=== PATIENT | female | born 1980 | race Caucasian/White ===

== ENCOUNTER 2017-01-04 09:07 | Emergency (ER) | payer OTHER ==
[2017-01-04 09:11] VITALS: BMI 24.7
--- NOTE | 2017-01-04 09:33 | PDOC ---
History of Present Illness - General History Source: Patient Exam Limitations: No Limitations - History of Present Illness Initial Comments: 01/04/17 10:35 The patient is a 36 year old female (), with no significant past medical history who presents to the emergency department with hematuria since last night. Patient reports sudden onset of hematuria associated with dysuria and low back pain. Patient reports back pain is throbbing, 5/10 in severity with no radiation. Patient has never experienced these symptoms before and presents to the ED for further evaluation. Patient denies any complications during her previous pregnancies. Patient denies taking any medications however has been taking vitamins. Patient is scheduled for first US on Jan 23, 2017 at [facility]. Patient denies chest pain, headache or dizziness. Patient denies fever, chills, nausea, vomit, diarrhea or constipation. Patient denies dysuria, frequency, urgency or hematuria. Patient denies sick contacts or recent travel. Allergies: NKA Past surgical history:L bunionectomy Social history: None PCP: PROFESSOR OF RELIGIOUS STUDIES: Traci Duran <Apryl Ferrer - Last Filed: 01/04/17 12:20> <Polly Dominguez - Last Filed: 01/04/17 12:41> - General Chief Complaint: Vaginal Bleeding Stated Complaint: BLEEDING (8 WKS ) Time Seen by Provider: 01/04/17 09:33 Past History <Apryl Ferrer - Last Filed: 01/04/17 12:20> - Past Medical History COPD: No Other medical history: NONE - Suicide/Smoking/Psychosocial Hx Smoking History: Never smoked Hx Alcohol Use: No Drug/Substance Use Hx: No <Polly Dominguez - Last Filed: 01/04/17 12:41> - Past Medical History Allergies/Adverse Reactions: Allergies Allergy/AdvReac Type Severity Reaction Status Date / Time No Known Allergies Allergy Verified 01/04/17 09:11 Home Medications: Ambulatory Orders NK [No Known Home Medication] 01/04/17 Review of Systems - Review of Systems Able to Perform ROS?: Yes Comments:: 01/04/17 10:35 GENERAL/CONSTITUTIONAL: No fever or chills. No weakness. HEAD, EYES, EARS, NOSE AND THROAT: No change in vision. No ear pain or discharge. No sore throat. GASTROINTESTINAL: No nausea, vomiting, diarrhea or constipation. GENITOURINARY: + dysuria, hematuria, R Flank pain. No frequency, or change in urination. CARDIOVASCULAR: No chest pain or shortness of breath. RESPIRATORY: No cough, wheezing, or hemoptysis. MUSCULOSKELETAL: No joint or muscle swelling or pain. No neck or back pain. SKIN: No rash NEUROLOGIC: No headache, vertigo, loss of consciousness, or change in strength/ sensation. ENDOCRINE: No increased thirst. No abnormal weight change. HEMATOLOGIC/LYMPHATIC: No anemia, easy bleeding, or history of blood clots. ALLERGIC/IMMUNOLOGIC: No hives or skin allergy. <Apryl Ferrer - Last Filed: 01/04/17 12:20> *Physical Exam - Vital Signs Last Vital Signs Temp Pulse Resp BP Pulse Ox 98.1 F 75 17 121/67 98 01/04/17 09:08 01/04/17 09:53 01/04/17 09:53 01/04/17 09:53 01/04/17 09:53 - Physical Exam Comments: 01/04/17 10:35 GENERAL: Awake, alert, and fully oriented, in no acute distress HEAD: No signs of trauma EYES: PERRLA, EOMI, sclera anicteric, conjunctiva clear ENT: Auricles normal inspection, hearing grossly normal, nares patent, oropharynx clear without exudates. Moist mucosa NECK: Normal ROM, supple, no lymphadenopathy, JVD, or masses LUNGS: Breath sounds equal, clear to auscultation bilaterally. No wheezes, and no crackles HEART: Regular rate and rhythm, normal S1 and S2, no murmurs, rubs or gallops ABDOMEN: +Suprapubic tenderness to palpation. Soft, normoactive bowel sounds. No guarding, no rebound. No masses EXTREMITIES: Normal range of motion, no edema. No clubbing or cyanosis. No cords , erythema, or tenderness NEUROLOGICAL: Normal speech, cranial nerves intact, negative pronator drift, 5/ 5 strength in all 4 extremities, normal sensation to light touch in all 4 extremities, normal cerebellar exam, normal gait, normal reflexes and tone SKIN: Warm, Dry, normal turgor, no rashes or lesions noted. METALLURGIST HELPER: Pinkish/brown discharge on glove.Cervical os is closed. No midline or adnexal ttp <Apryl Ferrer - Last Filed: 01/04/17 12:20> - Vital Signs Last Vital Signs Temp Pulse Resp BP Pulse Ox 98.1 F 82 20 139/82 100 01/04/17 09:08 01/04/17 09:08 01/04/17 09:08 01/04/17 09:08 01/04/17 09:08 <Polly Dominguez - Last Filed: 01/04/17 12:41> ED Treatment Course - LABORATORY CBC & Chemistry Diagram: 01/04/17 09:30 01/04/17 09:30 - ADDITIONAL ORDERS Additional order review: 01/04/17 09:30 RBC 4.47 MCV 87.2 MCHC 34.5 RDW 15.0 MPV 7.9 Neutrophils % 50.6 Lymphocytes % 36.2 Monocytes % 6.7 Eosinophils % 5.1 H Basophils % 1.4 <Apryl Ferrer - Last Filed: 01/04/17 12:20> - LABORATORY CBC & Chemistry Diagram: 01/04/17 09:30 01/04/17 09:30 - RADIOLOGY Radiology Studies Ordered: Category Date Time Status TRANSVAGINAL US PREG [US] Stat Ultrasound 01/04/17 09:20 Ordered <Polly Dominguez - Last Filed: 01/04/17 12:41> Medical Decision Making - Medical Decision Making 01/04/17 12:19 Transvaginal US IMPRESSION: Early intrauterine . Estimated gestational age of 6 weeks 2 days based on the mean sac diameter. A tiny pole is identified measuring 2 mm. heart activity could not be detected /documented at this time. Correlation with serial quantitative serum beta hCG and close follow-up pelvis ultrasound is recommended Reported By: Yoselin Hensley MD 01/04/17 1214 01/04/17 12:20 Traci Duran paged via phone answering service. Awaiting call back. <Apryl Ferrer - Last Filed: 01/04/17 12:20> - Medical Decision Making 01/04/17 09:45 36-year-old female presents with bleeding upon urination since yesterday. Vitals unremarkable. Exam with closed os and minimal tenderness to palpation in the suprapubic area. Differential includes but is not limited to UTI versus threatened versus missed . Plan: -labs -type & screen -TVUS -UA/Ucx -reassess 11/29/17 12:28 Labs within normal limits. Type and screen O+. UA with no signs of infection. Transvaginal ultrasound consistent with 6 week and 2 day . No heart rate is visualized on the ultrasound. Beta is only in the 9000 range consistent with 5-6 wk . LMP 9 and thus large disparity btwn dates and US/HCG quant. Case discussed with Gina Zhang (Dr. Rayne Hidalgo's nurse) - possible spontaneous . We were able to move up her appointment for follow-up that was originally scheduled for January 16 to this January 06 at 2: 15pm. Patient will have her beta repeated at this appointment. Patient without vaginal bleeding during her stay in the emergency department. Her repeat blood pressure was within normal limits and the remainder of her vitals are within normal limits. All results and my discussion with Gina were discussed with the patient. Patient expresses understanding and will follow-up with Dr. Duran on Monday. I discussed the physical exam findings, ancillary test results and final diagnoses with the patient. I answered all of the patient's questions. The patient was satisfied with the care received and felt comfortable with the discharge plan and treatment plan. The patient will call their primary care physician within 24 hours to arrange follow-up and will return to the Emergency Department with any new, persistent or worsening symptoms. <Polly Dominguez - Last Filed: 01/04/17 12:41> *DC/Admit/Observation/Transfer - Attestations Scribe Attestion: 01/04/17 10:35 Documentation prepared by Apryl Ferrer, acting as medical technologist hematology for Polly Dominguez MD, <Apryl Ferrer - Last Filed: 01/04/17 12:20> - Discharge Dispostion Admit: No - Attestations Physician Attestion: 01/04/17 12:41 I, Dr. Polly Dominguez MD, attest that this document has been prepared under my direction and personally reviewed by me in its entirety. I further attest, that it accurately reflects all work, treatment, procedures and medical decision -making performed by me. <Polly Dominguez - Last Filed: 01/04/17 12:41> Diagnosis at time of Disposition: Vaginal bleeding - Discharge Dispostion Disposition: HOME Condition at time of disposition: Stable - Referrals Referrals: Pamela Gage [Primary Care Provider] - Traci Duran MD [Certified Nurse Laborer [employer]] - - Patient Instructions Printed Discharge Instructions: DI for Vaginal Bleeding During Additional Instructions: I have moved up your appointment with Dr. Duran to this Friday, January 06, 2017 at 2:15 PM. Please follow-up at this appointment for repeat labs and evaluation. If you have any heavy bleeding or worsening pain please return to the emergency department immediately. If you have any new, worsening or concerning symptoms, return to the emergency department. Print Language: SERBIAN
[2017-01-04 09:42] LABS: BASOPHIL 1.4 % (0-2.0); EOSINOPHIL 5.1 % (0-4.5); MCH 30.1 pg (25.7-33.7); MCHC 34.5 g/dl (32.0-36.0); MEAN CELL VOLUME 87.2 fl (80-96); MEAN PLT VOLUME 7.9 fl (7.5-11.1); NEUTROPHILS 50.6 % (42.8-82.8); PLATELET COUNT 340 K/MM3 (134-434); WHITE BLOOD COUNT 6.7 K/mm3 (4.0-10.0)
[2017-01-04 10:09] LABS: ALBUMIN 4.1 g/dl (3.4-5.0); ANION GAP 7 (8-16); BILIRUBIN,TOTAL 1.2 mg/dL (0.2-1.0); CALCIUM 9.1 mg/dL (8.5-10.1); CO2 28 mmol/L (21-32); CREATININE 0.7 mg/dL (0.55-1.02); GLUCOSE,RANDOM 97 mg/dL (74-106); SGOT/AST 24 U/L (15-37); SGPT/ALT 42 U/L (12-78); TOT PROT 7.5 g/dl (6.4-8.2)
[2017-01-04 10:26] LABS: ALK PHOS 70 U/L (45-117)
[2017-01-04 10:42] LABS: URINE APPEARANCE CLEAR; URINE BILIRUBIN NEGATIVE (NEGATIVE); URINE BLOOD NEGATIVE (NEGATIVE); URINE COLOR LT. YELLOW; URINE GLUCOSE (UA) NEGATIVE (NEGATIVE); URINE KETONE NEGATIVE (NEGATIVE); URINE NITRITE NEGATIVE (NEGATIVE); URINE PROTEIN NEGATIVE (NEGATIVE); URINE UROBILINOGEN 0.2 mg/dL (0.2-1.0)
[2017-01-04 13:02] VITALS: BP 104/70; PULSE 69; TEMP 98.5
[2017-01-04 18:52] LABS: URINE LEUK ESTERASE Negative (NEGATIVE)
== END 2017-01-04 13:02 | disposition home or self-care (01) ==
LOC: JER 09:07
DX: O26.891 Other specified pregnancy related conditions, first trimester (principal); O20.8 Other hemorrhage in early pregnancy; Z3A.01 Less than 8 weeks gestation of pregnancy
CPT/HCPCS: 36415; 76817-TC; 80053; 81003; 84702; 85025; 86850; 86900; 86901; 87086; 99283-25

== ENCOUNTER 2017-01-10 20:18 | Emergency (ER) | payer OTHER ==
--- NOTE | 2017-01-10 20:22 | PDOC ---
Rapid Medical Evaluation Time Seen by Provider: 01/10/17 20:19 Medical Evaluation: Allergies Allergy/AdvReac Type Severity Reaction Status Date / Time No Known Allergies Allergy Verified 01/04/17 09:11 01/10/17 20:20 I have performed a brief in-person evaluation of this patient. The patient presents with a chief complaint of: , 7 wk preg, bleeding x 1 week clots today (came last week for same), US done today with Rayne Duran ( results in EMR), nausea in am no vomiting, blood type O+ I have ordered the following: beta hcg The patient will proceed to the ED for further evaluation. Discharge Disposition - Diagnosis Vaginal bleeding in - Referrals Referrals: Pamela Gage [Primary Care Provider] - - Patient Instructions - Post Discharge Activity
[2017-01-10 20:24] VITALS: BP 140/76; PULSE 90; TEMP 98; BMI 24.7
--- NOTE | 2017-01-10 22:05 | PDOC ---
History of Present Illness - History of Present Illness Initial Comments: 01/10/17 22:06 The patient is a 36 year old 7 weeks () female, with no significant past medical history, who presents to the emergency department for vaginal bleeding and possible miscarriage. Patient saw her PCP today and came to the ER. She was here a week ago for the same issues but today she reports the amount of blood is significant and period-like. She denies experiences any current cramping. She denies recent fevers, chills, headache or dizziness. She denies recent nausea, vomit, diarrhea or constipation. She denies recent dysuria, frequency, urgency or hematuria. She denies recent chest pain or shortness of breath. Allergies: NKA Past surgical history: None reported. Social history: Nonsmoker. Denies EtOH use and recreational drug use. Primary Care Physician: Traci Duran <Wendie Phan - Last Filed: 01/10/17 22:06> <Jacque Srivastava - Last Filed: 01/10/17 22:16> - General Chief Complaint: Vaginal Bleeding Stated Complaint: VAGINAL BLEEDING/7WKS Time Seen by Provider: 01/10/17 20:19 Past History <Wendie Phan - Last Filed: 01/10/17 22:06> - Past Medical History COPD: No - Reproductive History (#): 4 Para: 3 Spontaneous : 0 - Immunization History Immunization Up to Date: Yes - Suicide/Smoking/Psychosocial Hx Smoking History: Never smoked Hx Alcohol Use: No Drug/Substance Use Hx: No <Jacque Srivastava - Last Filed: 01/10/17 22:16> - Past Medical History Allergies/Adverse Reactions: Allergies Allergy/AdvReac Type Severity Reaction Status Date / Time No Known Allergies Allergy Verified 01/10/17 20:20 Home Medications: Ambulatory Orders NK [No Known Home Medication] 01/04/17 Review of Systems - Review of Systems Comments:: 01/10/17 22:06 CONSTITUTIONAL: Absent: fever, no chills, no fatigue EYES: Absent: visual changes ENT: Absent: ear pain, no sore throat CARDIOVASCULAR: Absent: chest pain, no palpitations RESPIRATORY: Absent: cough, no SOB GI: Absent: abdominal pain, no nausea, no vomiting, no constipation, no diarrhea GYNECOLOGICAL: Present: vaginal bleeding Absent: cramping GENITOURINARY: Absent: dysuria, no frequency, no hematuria MUSCULOSKELETAL: Absent: back pain, no arthralgia, no myalgia SKIN: Absent: rash NEURO: Absent: headache <Wendie Phan - Last Filed: 01/10/17 22:06> *Physical Exam - Vital Signs Last Vital Signs Temp Pulse Resp BP Pulse Ox 98.0 F 90 20 140/76 100 01/10/17 20:20 01/10/17 20:20 01/10/17 20:20 01/10/17 20:20 01/10/17 20:20 - Physical Exam Comments: 01/10/17 22:07 GENERAL: Well-appearing, well-nourished. No apparent distress. HEENT: Normocephalic, atraumatic. PERRL, EOM intact. CARDIOVASCULAR: Normal S1, S2. Regular rate and rhythm. PULMONARY: Clear to auscultation bilaterally. ABDOMEN: Soft, non-distended, non-tender. EXTREMITIES: Normal ROM in all four extremities. No gross deformities. SKIN: Warm, dry. No rash NEUROLOGICAL: No focal neurological deficits. <Wednie Phan - Last Filed: 01/10/17 22:06> - Vital Signs Last Vital Signs Temp Pulse Resp BP Pulse Ox 98.0 F 90 20 140/76 100 01/10/17 20:20 01/10/17 20:20 01/10/17 20:20 01/10/17 20:20 01/10/17 20:20 <Jacque Srivastava - Last Filed: 01/10/17 22:16> ED Treatment Course - ADDITIONAL ORDERS Additional order review: Laboratory Results 01/10/17 20:23 Beta HCG, Quant 5834.9 <Wendie Phan - Last Filed: 01/10/17 22:06> - ADDITIONAL ORDERS Additional order review: Laboratory Results 01/10/17 20:23 Beta HCG, Quant 5834.9 <Jacque Srivastava - Last Filed: 01/10/17 22:16> Medical Decision Making - Medical Decision Making 01/10/17 22:08 36-year-old female 4 para 3 presents for increased vaginal bleeding. She had an ultrasound done earlier this morning that showed a 7 week intrauterine sac, but there was no pole and no heartbeat. She is followed by Rayne Duran at [address] [place] [address]. She was here on January 04 and at that time had a beta-hCG that was approximately 9900 Night. Her beta hCG is 5800. Her blood type is O+. She has a follow-up visit with her IMAGING ENGINEER this week and was discharged home. Impression threatened AB <Jacque Srivastava - Last Filed: 01/10/17 22:16> *DC/Admit/Observation/Transfer - Attestations Scribe Attestion: 01/10/17 22:07 Documentation prepared by Wendie Phan, acting as certified medical technician assistant for Jacque Srivastava MD. <Wendie Phan - Last Filed: 01/10/17 22:06> <Jacque Srivastava - Last Filed: 01/10/17 22:16> Diagnosis at time of Disposition: Threatened in early - Discharge Dispostion Disposition: HOME Condition at time of disposition: Stable - Referrals Referrals: Pamela Gage [Primary Care Provider] - - Patient Instructions Printed Discharge Instructions: DI for Threatened Additional Instructions: please followup with your oncology social work - Post Discharge Activity
== END 2017-01-10 22:26 | disposition home or self-care (01) ==
LOC: JER 20:18
DX: O26.891 Other specified pregnancy related conditions, first trimester (principal); Z3A.01 Less than 8 weeks gestation of pregnancy; O20.0 Threatened abortion
CPT/HCPCS: 36415; 76801-TC; 84702; 99281-25

== ENCOUNTER 2021-03-04 18:20 | Inpatient (IN) | payer OTHER ==
[2021-03-04] MEDS ORDERED: AMPICILLIN SODIUM 2 GM VIAL ONE (19:49)
[2021-03-04 20:40] LABS: BASO % 0.2 % (0-2.0); EOS % 1.6 % (0-4.5); HEMATOCRIT 39.2 % (32.4-45.2); LYMPH % 13.9 % (8-40); MCH 30.7 pg (25.7-33.7); MCHC 33.1 g/dl (32.0-36.0); MEAN CELL VOLUME 92.9 fl (80-96); MEAN PLT VOLUME 8.6 fl (7.5-11.1); MONO % 5.8 % (3.8-10.2); NEUT % 78.5 % (42.8-82.8); PLATELET COUNT 333 10^3/uL (134-434); RBC 4.22 M/mm3 (3.60-5.2); RDW 13.7 % (11.6-15.6); WHITE BLOOD COUNT 9.2 K/mm3 (4.0-10.0)
[2021-03-04 20:49] LABS: INR 0.88 (0.83-1.09); PROTHROMBIN TIME (PATIENT) 10.1 SEC (9.7-13.0)
[2021-03-04 20:51] LABS: ACTIVATED PTT 25.7 SECONDS (25.2-36.5)
[2021-03-04] MEDS ORDERED: OXYTOCIN 20 UNITS in 0.9% NS 20 UNIT/1,000 ML INFUS.BAG IV ONE (21:08)
[2021-03-04] MEDS ORDERED: LIDOCAINE HCL 1% PRESERVATIVE FREE - 30ML VIAL ONE (21:08)
[2021-03-04 21:11] LABS: CALCIUM 9.3 mg/dL (8.5-10.1)
[2021-03-04 21:12] LABS: ALBUMIN 2.8 g/dl (3.4-5.0)
[2021-03-04 21:15] LABS: CREATININE 0.5 mg/dL (0.55-1.3)
[2021-03-04 21:16] LABS: TOT PROT 6.5 g/dl (6.4-8.2)
[2021-03-04 21:17] LABS: BILIRUBIN,TOTAL 0.6 mg/dL (0.2-1)
[2021-03-04] MEDS ORDERED: BUTORPHANOL TARTRATE 1 MG/ML VIAL ONE (21:24)
[2021-03-04] MEDS ORDERED: PROMETHAZINE HCL 25 MG/1 ML VIAL ONE (21:24)
[2021-03-04] MEDS ORDERED: BUTORPHANOL TARTRATE 1 MG/ML VIAL IVPUSH ONE (21:27)
[2021-03-04] MEDS ORDERED: PROMETHAZINE HCL 25 MG/1 ML VIAL IVPUSH ONE (21:27)
[2021-03-04 21:42] LABS: BLOOD UREA NITROGEN 6.2 mg/dL (7-18)
[2021-03-04] MEDS ORDERED: DEXTROSE 5%-LACTATED RINGERS 1,000 ML IV SCH (21:45)
[2021-03-04] MEDS ORDERED: oxyCODONE HCL 5 MG TABLET PO PRN (21:52)
[2021-03-04] MEDS ORDERED: IBUPROFEN 600 MG TABLET (FP) PO PRN (21:52)
[2021-03-04] MEDS ORDERED: METHYLERGONOVINE MALEATE 0.2 MG/1 ML AMP IM PRN (21:52)
[2021-03-04] MEDS ORDERED: BENZOCAINE 20% 57 GM BOTTLE TP PRN (21:52)
[2021-03-04] MEDS ORDERED: BENZOCAINE 28 GM HEMORRHOIDAL OINTMENT TP PRN (21:52)
[2021-03-04] MEDS ORDERED: WITCH HAZEL 50% (TUCKS) 40 PAD/JAR PAD TP PRN (21:52)
[2021-03-04] MEDS ORDERED: ACETAMINOPHEN 325 MG TABLET (FP) PO PRN (21:52)
[2021-03-04] MEDS ORDERED: BISACODYL 10 MG SUPP.RECT RC PRN (21:52)
[2021-03-04 21:56] LABS: HIV INTERPRETATION NEGATIVE (NEGATIVE)
[2021-03-04 21:57] LABS: SYPHILIS W/ RPR CONF REACTIVE (NONREACTIVE)
[2021-03-04] MEDS ORDERED: OXYTOCIN 20 UNITS in 0.9% NS 20 UNIT/1,000 ML INFUS.BAG IV SCH (22:00)
[2021-03-04 22:20] VITALS: BMI 31.8
[2021-03-04 23:16] LABS: CORD HCO3 21.9 mmHg (20-29); CORD PCO2 53.5 mmHg (30-78)
[2021-03-04 23:19] LABS: CORD BASE EXCESS -0.6 mmol/L (0-2); CORD HCO3 24.6 mmHg (20-29); CORD PCO2 42.1 mmHg (30-78); CORD pH 7.384 (7.14-7.44)
[2021-03-05] MEDS ORDERED: ACETAMINOPHEN 325 MG TABLET (FP) ONE (01:12)
[2021-03-05] MEDS ORDERED: WITCH HAZEL 50% (TUCKS) 40 PAD/JAR PAD TP PRN (11:50)
[2021-03-05] MEDS ORDERED: IBUPROFEN 600 MG TABLET (FP) PO PRN (11:50)
[2021-03-05] MEDS ORDERED: oxyCODONE HCL 5 MG TABLET PO PRN (11:50)
[2021-03-05] MEDS ORDERED: BENZOCAINE 28 GM HEMORRHOIDAL OINTMENT TP PRN (11:50)
[2021-03-05] MEDS ORDERED: BISACODYL 10 MG SUPP.RECT RC PRN (11:50)
[2021-03-05] MEDS ORDERED: METHYLERGONOVINE MALEATE 0.2 MG/1 ML AMP IM PRN (11:50)
[2021-03-05] MEDS ORDERED: BENZOCAINE 20% 57 GM BOTTLE TP PRN (11:50)
[2021-03-05] MEDS ORDERED: ACETAMINOPHEN 325 MG TABLET (FP) PO PRN (11:50)
[2021-03-05] MEDS ORDERED: OXYTOCIN 20 UNITS in 0.9% NS 20 UNIT/1,000 ML INFUS.BAG IV SCH (12:00)
[2021-03-05] MEDS ORDERED: SENNOSIDES/DOCUSATE COMBO (SENNA PLUS) TABLET (UD) PO PRN (22:00)
[2021-03-06 10:04] LABS: BASO % 0.5 % (0-2.0); HEMATOCRIT 36.5 % (32.4-45.2); HEMOGLOBIN 12.3 GM/dL (10.7-15.3); LYMPH % 17.7 % (8-40); MCH 31.4 pg (25.7-33.7); MCHC 33.6 g/dl (32.0-36.0); MEAN CELL VOLUME 93.6 fl (80-96); MEAN PLT VOLUME 8.5 fl (7.5-11.1); MONO % 5.3 % (3.8-10.2); NEUT % 73.5 % (42.8-82.8); PLATELET COUNT 327 10^3/uL (134-434); RDW 14.3 % (11.6-15.6); WHITE BLOOD COUNT 11.4 K/mm3 (4.0-10.0)
[2021-03-06 10:43] VITALS: BP 123/81; PULSE 80; TEMP 97.9
[2021-03-06] MEDS ORDERED: SENNOSIDES/DOCUSATE COMBO (SENNA PLUS) TABLET (UD) PO PRN (22:00)
== END 2021-03-06 15:10 | disposition home or self-care (01) | DRG 560 ==
LOC: JDEL 18:20 → JLDR 19:30 → J3W 03-05 00:01
PROVIDERS: ADMIT Obstetrics & Gynecology; ATTEND Obstetrics & Gynecology
PROC: 10E0XZZ Delivery of Products of Conception, External Approach (ICD-10-PCS; principal; 2021-03-04)
PROC: 0HQ9XZZ Repair Perineum Skin, External Approach (ICD-10-PCS; 2021-03-04)
DX: O42.02 Full-term premature rupture of membranes, onset of labor within 24 hours of rupture (principal); O70.0 First degree perineal laceration during delivery; O77.0 Labor and delivery complicated by meconium in amniotic fluid; Z3A.39 39 weeks gestation of pregnancy; Z37.0 Single live birth; Z86.19 Personal history of other infectious and parasitic diseases
CPT/HCPCS: 36415; 36600; 59025; 59409; 80053; 82803; 85025; 85610; 85730; 86593; 86762; 86780; 86850; 86900; 86901; 87340; 87389; C9803; G0463-25; U0003; U0005